=== PATIENT | male | born 1955 | race Caucasian/White ===

== ENCOUNTER 2018-08-13 11:38 | Day surgery (SDC) | payer OTHER ==
[2018-08-07 10:21] LABS: BASOPHILS % (AUTO) 0.9 % (0-1); EOSINOPHILS # (AUTO) 0.1 X10'3 (0-0.9); EOSINOPHILS % (AUTO) 2.7 % (0-6); HEMATOCRIT 46.6 % (42.0-52.0); LYMPHOCYTES # (AUTO) 1.5 X10'3 (1.1-4.8); LYMPHOCYTES % (AUTO) 30.8 % (21-51); MEAN CORPUSCULAR HEMOGLOBIN 29.1 PG (27.0-31.0); MEAN CORPUSCULAR HGB CONC 34.3 g/dL (33.0-36.5); MEAN CORPUSCULAR VOLUME 84.8 FL (78-98); MEAN PLATELET VOLUME 8.2 FL (7.4-10.4); MONOCYTES # (AUTO) 0.6 X10'3 (0-0.9); MONOCYTES % (AUTO) 11.3 % (2-12); NEUTROPHILS # (AUTO) 2.7 X10'3 (1.8-7.7); NEUTROPHILS % (AUTO) 54.3 % (42-75); PLATELET COUNT 193 X10'3 (140-440); RED BLOOD COUNT 5.49 X10'6 (4.70-6.10); RED CELL DISTRIBUTION WIDTH 13.9 % (11.5-14.5); WHITE BLOOD COUNT 4.9 X10'3 (4.5-11.0)
[2018-08-07 10:28] LABS: ALBUMIN 3.6 G/DL (3.4-5.0); ANION GAP 6 (8-16); BLOOD UREA NITROGEN 19 MG/DL (7-18); CALCIUM 8.4 MG/DL (8.5-10.1); CHLORIDE 106 MMOL/L (99-107); CREATININE 0.95 MG/DL (0.60-1.10); GLUCOSE 101 MG/DL (70-104); POTASSIUM 3.9 MMOL/L (3.5-5.1); SODIUM 137 MMOL/L (135-145); TOTAL CARBON DIOXIDE 24.6 MMOL/L (24-32); eGFR 80 ML/MIN
[2018-08-07 10:34] LABS: PARTIAL THROMBOPLASTIN TIME 29 SECONDS (22-32)
[~2018-08-13] VITALS: Ht 179.1 cm; Wt 85.2 kg
[2018-08-13] VITALS (10 sets, daily range): BP systolic 102–135; BP diastolic 67–88
[~2018-08-13 11:38] MED LIST: ASPI-1009 PO; ASPI81TA52 PO; CLOP75TA35 PO; DOXY50CA2 PO; FOLI-43 PO; LOSA25TA96 PO; METH2.5T17 PO; ROSU10TA2 PO; TICA90TA2 PO
[2018-08-13] MEDS ORDERED: LISI2.5T2 PO (12:23)
[2018-08-13] MEDS ORDERED: LORazepam 0.5 MG tablet PO PRN (12:25)
[2018-08-13] MEDS ORDERED: normal saline 1,000 ML IV SCH (12:25)
[2018-08-13] MEDS ORDERED: diphenhydrAMINE 25mg capsule PO PRN (12:25)
[2018-08-13] MEDS ORDERED: fentaNYL/PF 50MCG/1 ML 2ML syringe ONE (13:30)
[2018-08-13] MEDS ORDERED: iohexol 350MG/ML 100ml bottle IV ONE (13:30)
[2018-08-13] MEDS ORDERED: LIDOcaine 1% (10mg/ml)w/preservative injection 20ml MDV ONE (13:30)
[2018-08-13] MEDS ORDERED: midazolam 2 mg/2 ml injection ONE (13:30)
[2018-08-13] MEDS ORDERED: iohexol 350 MG/ML 50ML vial IV ONE (14:09)
[2018-08-13] MEDS ORDERED: OXAZEpam 15mg capsule PO PRN (16:40)
[2018-08-13] MEDS ORDERED: proCHLORperazine 10 MG/2 ml inj IV PRN (16:40)
[2018-08-13] MEDS ORDERED: nitroGLYCERIN 0.4mg SUBLingual tab SL PRN (16:40)
[2018-08-13] MEDS ORDERED: ondansetron/PF 4mg/2ml inj IV PRN (16:40)
[2018-08-13] MEDS ORDERED: HYDROcodone/acetaminophen 5mg/325mg tablet PO PRN (16:40)
[2018-08-13] MEDS ORDERED: HYDROcodone/acetaminophen 10/325mg tab PO PRN (16:40)
== END 2018-08-13 19:05 | disposition home or self-care (01) ==
LOC: SSTAY O 11:38
PROVIDERS: ATTEND Internal Medicine Interventional Cardiology
DX: I25.10 Atherosclerotic heart disease of native coronary artery without angina pectoris (principal); I25.82 Chronic total occlusion of coronary artery; I10 Essential (primary) hypertension; I25.2 Old myocardial infarction; E78.5 Hyperlipidemia, unspecified; Z79.82 Long term (current) use of aspirin; Z79.899 Other long term (current) drug therapy; Z95.1 Presence of aortocoronary bypass graft
CPT/HCPCS: 36415; 80048; 85025; 85610; 85730; 93005; 93459; 99152; A6257; C1769; J1644; J2001; J2250; J3010; J7030; Q0163; Q9967; A4620